=== PATIENT | female | born 1990 ===

== ENCOUNTER 2018-01-16 23:20 | Emergency (ER) | payer OTHER ==
[2018-01-16 23:29] VITALS: O2SAT 99
[2018-01-17] MEDS ORDERED: Sodium Chloride 0.9% 1,000 ML IV STA (02:21)
[2018-01-17 03:10] LABS: BASO # 0.1 K/uL (0.0-0.2); BASO % 0.5 % (0.0-2.0); EOS # 0.2 K/uL (0.0-0.7); HEMOGLOBIN 13.4 g/dL (12.0-16.0); LYMPH # 3.3 K/uL (1.0-4.3); LYMPH % 28.7 % (20.0-40.0); MEAN CELL VOLUME 85.9 fl (81.0-99.0); MEAN CORPUSCULAR HEMOGLOBIN 28.6 pg (27.0-31.0); MEAN CORPUSCULAR HGB CONC 33.3 g/dL (33.0-37.0); MEAN PLATELET VOLUME 8.9 fl (7.2-11.7); MONO # 0.7 K/uL (0.0-0.8); MONO % 6.1 % (0.0-10.0); NEUT # 7.2 K/uL (1.8-7.0); NEUT % 62.7 % (50.0-75.0); NRBC % 0.1 % (0.0-0.0); RBC 4.69 Mil/uL (3.80-5.20); RED CELL DISTRIBUTION WIDTH 12.9 % (11.5-14.5); URINE BACTERIA RARE (<OCC); URINE BILIRUBIN NEGATIVE (NEGATIVE); URINE BLOOD NEGATIVE (NEGATIVE); URINE CLARITY CLEAR (Clear); URINE COLOR STRAW (YELLOW); URINE GLUCOSE (UA) NEG (Normal); URINE LEUKOCYTE ESTERASE NEG Leu/uL (Negative); URINE PROTEIN NEGATIVE (NEGATIVE); URINE UROBILINOGEN 0.2-1.0 mg/dL (0.2-1.0); WHITE BLOOD COUNT 11.5 K/uL (4.8-10.8)
--- NOTE | 2018-01-17 03:13 | ED PDOC ---
HPI: Abdomen Time Seen by Provider: 01/17/18 01:33 Chief Complaint (Nursing): Abdominal Pain Chief Complaint (Provider): pelvic pain History Per: Patient History/Exam Limitations: no limitations Onset/Duration Of Symptoms: Hrs (x2) Associated Symptoms: Nausea, Back Pain (mild discomfort). denies: Vomiting, Urinary Symptoms Additional Complaint(s): Melissa Real is a 27 year old female, with no significant past medical history, who presents to the emergency department complaining of pelvic pain onset for x2 hrs. Patient reports she developed pain while having sexual intercourse. She describes pain as sharp and located in suprapubic region. Patient is concerned due to history of IUD x1.5 yrs old. She reports some nausea and a mild back discomfort but denies any vomiting, vaginal discharge or bleeding, no urinary symptoms. No further medical complaints. PMD: None provided. Past Medical History Reviewed: Historical Data, Nursing Documentation, Vital Signs Vital Signs: Last Vital Signs Temp 98.4 F 01/16/18 23:25 Pulse 80 01/16/18 23:25 Resp 17 01/16/18 23:25 BP 110/76 01/16/18 23:25 Pulse Ox 99 01/16/18 23:25 - Medical History PMH: No Chronic Diseases - Surgical History Surgical History: No Surg Hx - Family History Family History: States: Unknown Family Hx - Social History Current smoker - smoking cessation education provided: No Alcohol: None Drugs: Denies - Home Medications Home Medications: Ambulatory Orders Medication Instructions Recorded Naproxen [Naprosyn] 500 mg PO Q12 #14 tab 01/17/18 - Allergies Allergies/Adverse Reactions: Allergies Allergy/AdvReac Type Severity Reaction Status Date / Time No Known Allergies Allergy Verified 01/16/18 23:29 Review of Systems ROS Statement: Except As Marked, All Systems Reviewed And Found Negative Gastrointestinal: Positive for: Nausea. Negative for: Vomiting Genitourinary Female: Positive for: Pelvic Pain. Negative for: Vaginal Discharge, Vaginal Bleeding Musculoskeletal: Positive for: Back Pain (mild discomfort) Physical Exam - Reviewed Nursing Documentation Reviewed: Yes Vital Signs Reviewed: Yes - Physical Exam Appears: Positive for: No Acute Distress Head Exam: Positive for: ATRAUMATIC, NORMAL INSPECTION, NORMOCEPHALIC Skin: Positive for: Normal Color, Warm, Dry Eye Exam: Positive for: Normal appearance, EOMI, PERRL Neck: Positive for: Painless ROM Cardiovascular/Chest: Positive for: Regular Rate, Rhythm. Negative for: Murmur Respiratory: Positive for: Normal Breath Sounds. Negative for: Respiratory Distress Gastrointestinal/Abdominal: Positive for: Tenderness (suprapubic). Negative for: Guarding, Rebound Back: Positive for: Normal Inspection. Negative for: L CVA Tenderness, R CVA Tenderness, Vertebral Tenderness Extremity: Positive for: Normal ROM (upper and lower extremities). Negative for: Deformity, Swelling Neurologic/Psych: Positive for: Alert, Oriented, Gait (steady) - Laboratory Results Result Diagrams: 01/17/18 02:35 01/17/18 02:35 - ECG O2 Sat by Pulse Oximetry: 99 (RA) Pulse Ox Interpretation: Normal Medical Decision Making Medical Decision Making: Time: 01:33 Initial Impression: 27 y/o female with intercoital pain in setting of known IUD. Initial Plan: --CMP --Urine --Urine dipstick --CBC w/ differential --Sodium Chloride 1,000 ml IV 1,000 mls/hr --Toradol 30 mg IV --Urinalysis --Transvaginal [US] --Reevaluation 06:00 Transvaginal US IMPRESSION: IUD in place. Right ovarian simple cyst Unremarkable pelvic ultrasound otherwise. 06:05 -Patient reports improvement of symptoms and is medically stable for discharge home. No further treatment is requires in the ED at this time. Diagnosis of ovarian cysts. ----- Scribe Attestation: Documented by Romulo Hurtado, acting as a scribe for Misael Kohler MD. Provider Scribe Attestation: All medical record entries made by the Scribe were at my direction and personally dictated by me. I have reviewed the chart and agree that the record accurately reflects my personal performance of the history, physical exam, medical decision making, and the department course for this patient. I have also personally directed, reviewed, and agree with the discharge instructions and disposition. Disposition - Clinical Impression Clinical Impression: Ovarian cyst - Disposition Referrals: [facility] [Outside] [facility] [Outside] Disposition: Routine/Home Disposition Time: 06:05 Condition: STABLE Prescriptions: Naproxen [Naprosyn] 500 mg PO Q12 #14 tab Instructions: Ovarian Cysts Forms: Inbox (Greenlandic)
[2018-01-17 03:22] LABS: ALB/GLOB RATIO 1.3 (1.0-2.1); ALBUMIN 4.6 g/dL (3.5-5.0); ALT/SGPT 23 U/L (9-52); AST/SGOT 35 U/L (14-36); BLOOD UREA NITROGEN 12 mg/dl (7-17); CALCIUM 9.5 mg/dL (8.4-10.2); GFR NON-AFRICAN AMERICAN > 60
[2018-01-17 06:38] VITALS: BP 112/81; PULSE 72; RESP 16; TEMP 98.1
--- NOTE | 2018-01-17 09:22 | US ---
Date of service: 01/17/2018 HISTORY: IUD/Pelvic pain/possible torsion vs cyst COMPARISON: None available. TECHNIQUE: Transvaginal and transabdominal FINDINGS: UTERUS: Measures 6.9 x 3.9 x 5.5 cm. Normal in size and appearance. No fibroid or other mass lesion seen. ENDOMETRIUM: Measures determination of endometrial thickness limited by presence of intrauterine device. No gross endometrial thickening appreciated. Mm in diameter. Intrauterine device appropriately situated within the endometrial cavity of the uterine body and fundus. No endometrial fluid. CERVIX: No cervical abnormality identified. RIGHT OVARY: Measures 4.4 x 3.4 x 3.5 cm. No solid mass. Normal flow. Simple cyst, 1.3 x 1.7 x 2.9 cm. LEFT OVARY: Measures 3.5 x 2.5 x 2.9 cm. No solid mass. Normal flow. FREE FLUID: No significant free fluid noted. OTHER FINDINGS: None. IMPRESSION: Intrauterine device appropriately situated within the endometrial cavity. Incidental 2.9 cm simple right ovarian cyst. The preliminary findings for this examination were reported by [facility] at 6 a.m. on 01/17/2018. There is concurrence of this report with the preliminary findings.
== END 2018-01-17 06:20 | disposition home or self-care (01) ==
LOC: H.ER 23:20
DX: N83.201 Unspecified ovarian cyst, right side (principal); Z97.5 Presence of (intrauterine) contraceptive device
CPT/HCPCS: 76830; 80053; 81003; 81025; 85025; 96360; 99283; J1885; J7030